=== PATIENT | female | born 1990 | race Caucasian/White ===

== ENCOUNTER 2016-08-26 09:51 | Emergency (ER) | payer OTHER ==
[2016-08-26] MEDS ORDERED: Naproxen TAB* 250 MG PO ONE (10:45)
--- NOTE | 2016-08-26 11:29 | RAD ---
INDICATION: Low back pain. COMPARISON: There are no prior studies available for comparison. TECHNIQUE: 5 views of the lumbar spine were obtained including lateral, oblique, AP and a coned-down lateral view of the lumbar sacral junction. FINDINGS: There is anterior subluxation of L5 relative to S1 of approximate 7 mm consistent with grade 1 anterior spondylolisthesis. In addition there is bilateral spondylolysis at the L5 level. No other fractures are seen. There is moderate disc space narrowing at the L5-S1 level. IMPRESSION: GRADE 1 ANTERIOR SPONDYLOLISTHESIS AT THE L5-S1 LEVEL AND BILATERAL SPONDYLOLYSIS AT THE L5 LEVEL.
--- NOTE | 2016-08-26 11:54 | UC ---
Dank Echeverria Benjamin, scribed for Jamison Slater MD on 08/26/16 at 1041 . Back Pain HPI - HPI Summary HPI Summary: 26yo female with back problems since she was young. Pt was told that she has a Bulging disk on lower back from her previous physical exam. Pt states that the past 6 months, it has been gradually worsening. Since 1 week ago, pain has increased dramatically. Pt now has right lower back pain that sometimes radiates down the right hip and right leg. Took ibuprofen [employer] but didn't help much with her pain. - History of Current Complaint Chief Complaint: UCBackPain Stated Complaint: LOWER BACK COMPLAINT Time Seen by Provider: 08/26/16 10:31 Hx Obtained From: Patient Hx Last Menstrual Period: 08/19/16 Onset/Duration: Gradual Onset, Lasting Weeks - multiple weeks, Still Present, Worse Since - 1 week Timing: Constant Severity Initially: Mild Severity Currently: Moderate Pain Intensity: 6 Pain Scale Used: 0-10 Numeric Back Pain: Is Discrete @ - right lower back Aggravating: Nothing Alleviating: Nothing Associated Signs And Symptoms: Positive: Negative - Allergies/Home Medications Allergies/Adverse Reactions: Allergies Allergy/AdvReac Type Severity Reaction Status Date / Time No Known Allergies Allergy Verified 09/03/15 23:46 Home Medications: Home Medications Ibuprofen [Caldolor] 08/26/16 [History] PMH/Surg Hx/FS Hx/Imm Hx Psychological History: Anxiety - Surgical History Surgical History: None - Family History Known Family History: Positive: Diabetes, Other - thyroid disease Negative: Cardiac Disease, Hypertension - Social History Occupation: Employed Part-time Lives: With Family - roommates Alcohol Use: None Substance Use Type: None Smoking Status (MU): Current Every Day Smoker Review of Systems Constitutional: Negative Skin: Negative Eyes: Negative ENT: Negative Respiratory: Negative Cardiovascular: Negative Gastrointestinal: Negative Genitourinary: Negative Motor: Negative Neurovascular: Negative Musculoskeletal: Myalgia - right lower back pain Neurological: Negative Psychological: Negative All Other Systems Reviewed And Are Negative: Yes Physical Exam Triage Information Reviewed: Yes Appearance: Well-Appearing, No Pain Distress, Well-Nourished Vital Signs: Initial Vital Signs Temp 97.6 F 08/26/16 09:59 Pulse 79 08/26/16 09:59 Resp 18 08/26/16 09:59 BP 111/64 08/26/16 09:59 Pulse Ox 98 08/26/16 09:59 Vital Signs Reviewed: Yes Eye Exam: Normal ENT Exam: Normal Neck: Positive: Supple, Nontender Respiratory: Positive: Chest non-tender, Lungs clear, Normal breath sounds, No respiratory distress Cardiovascular: Positive: RRR, No Murmur Abdomen Description: Positive: Nontender, Soft Bowel Sounds: Positive: Present Musculoskeletal Exam: Other - Raised, erythemous patches of 2-3cm in diameter on arms, legs, and trunk that blanching. Musculoskeletal: Positive: Strength Intact, ROM Intact Neurological: Positive: Alert, Muscle Tone Normal Psychological: Positive: Age Appropriate Behavior Skin Exam: Normal Skin: Negative: rashes Diagnostics - Radiology LUMBARSACRAL XR Xray Interpretation: Positive (See Comments) - IMPRESSION: GRADE 1 ANTERIOR SPONDYLOLISTHESIS AT THE L5-S1 LEVEL AND BILATERAL SPONDYLOLYSIS AT THE L5 LEVEL. Radiology Interpretation Completed By: Radiologist Re-Evaluation - Re-Evaluation First Eval Re-Evaluation Time: 11:33 Comment: Discussed imaging results with the pt, as well as pt's disposition. Back Pain Course/Dx - Course Course Of Treatment: Reviewed medication lists. DISCUSSED RESULTS WITH PATIENT. RX SOMA. PT WILL TAKE ALEVE OTC. F/U WITH PMD AND/OR SPORTS MED FOR FURTHER TREATMENT/PT. - Differential Dx/Diagnosis Provider Diagnoses: LOW BACK PAIN. SPONDYLOLYSIS AND SPONDYLOLISTHESIS. Discharge - Discharge Plan Condition: Stable Disposition: HOME Prescriptions: Carisoprodol TAB* [Soma TAB*] 350 mg PO TID PRN #15 tab MDD 3 PRN Reason: Pain Patient Education Materials: Core Strengthening Exercises (GEN), Lower Back Exercises (ED), Low Back Strain (ED), Back Pain (ED) Referrals: Irma Hansen MD [Primary Care Provider] - [facility] [Outside] [facility] [Outside] Additional Instructions: FOLLOW UP WITH YOUR DOCTOR FOR FURTHER TREATMENT TO INCLUDE PHYSICAL THERAPY FOR YOUR LOW BACK PAIN. GET REEVALUATED FOR ANY WORSENING OF YOUR CONDITION; WEAKNESS, NUMBNESS, PAIN, DIFFICULTY CONTROLLING BOWEL OR BLADDER OR QUESTIONS OR CONCERNS. The documentation as recorded by the Dank forman Benjamin accurately reflects the service I personally performed and the decisions made by me, Jamison Slater MD.
[2016-08-26 12:07] VITALS: BP 103/68
== END 2016-08-26 12:06 | disposition home or self-care (01) ==
LOC: UCEAST 09:51
DX: M54.5 Low back pain (principal); F41.9 Anxiety disorder, unspecified; F17.210 Nicotine dependence, cigarettes, uncomplicated; M43.10 Spondylolisthesis, site unspecified
CPT/HCPCS: 72110; 99212; A9270-GY; G0463